=== PATIENT | female | born 1980 | race Caucasian/White ===

== ENCOUNTER 2017-04-17 20:32 | Emergency (ER) | payer OTHER ==
[2017-04-17 20:44] VITALS: BP 158/80; PULSE 100; O2SAT 100
[2017-04-17] MEDS ORDERED: Eye-Stream Solution OP ONE (20:51)
[2017-04-17] MEDS ORDERED: Erythromycin 3.5 GM OPHTH. OP ONE (20:51)
[2017-04-17] MEDS ORDERED: Fluor-I-Strip/Ful-Flo OP ONE ×2 (20:51→20:54)
[2017-04-17] MEDS ORDERED: TETRACAINE 0.5% STERI-UNIT SOL OP STA (20:51)
[2017-04-17] MEDS ORDERED: TETRACAINE 0.5% STERI-UNIT SOL OP ONE (20:53)
[2017-04-17] MEDS ORDERED: Sodium Chloride 0.9% 1000 ML 1,000 ML ONE (20:57)
[2017-04-17] MEDS ORDERED: Eye-Stream Solution ONE (20:59)
[2017-04-17] MEDS ORDERED: Erythromycin 1 GM ONE (21:05)
[2017-04-17] MEDS ORDERED: Norco 10/325 MG Tablet PO ONE ×2 (21:05)
--- NOTE | 2017-04-17 21:12 | ERPHSYRPT ---
- History of Present Illness Time Seen by Provider: 04/17/17 20:40 Source: patient Patient Subjective Stated Complaint: Right eye pain Triage Nursing Assessment: Pt states she was playing with sticks with her children, states stick was thrown and hit her in the eye. Redness noted. Pt denies any loss of vision. Physician History: PATIENT STATES WHILE THROWING STICKS TO GROWN WITH HER CHILDREN, STICK BOUNCED OFF GROUND STRIKING PATIENT INTO RIGHT EYE SUSTAINING PAIN, TEARING, AND PHOTOPHOBIA. Timing/Duration: today, improved Severity: severe Apparent Injury: yes Associated Symptoms: pain, sensitivity to light, foreign body sensation, decreased vision Visual Assistive Devices: Glasses, At Home Chemical Exposure: No Trauma: Yes Welding Arc/Tanning Bed Exposure: No Allergies/Adverse Reactions: No Known Drug Allergies Allergy (Unverified 08/11/13 18:59) Hx Tetanus, Diphtheria Vaccination/Date Given: Yes Hx Influenza Vaccination/Date Given: Yes Hx Pneumococcal Vaccination/Date Given: No Immunizations Up to Date: Yes - Review of Systems Constitutional: No Symptoms Eyes: Eye Pain, Photophobia, Tearing, Vision Changes, Foreign Body Sensation Ears, Nose, & Throat: No Symptoms Respiratory: No Symptoms Cardiac: No Symptoms Psychological: No Symptoms - Past Medical History Pertinent Past Medical History: No Psycho-Social History: Anxiety - Past Surgical History Past Surgical History: Yes Female Surgical History: Section Other Surgical History: Section x3 - Social History Smoking Status: Former smoker How long have you smoked: 6 years Exposure to second hand smoke: No Drug Use: none Patient Lives Alone: No - Female History Hx Last Menstrual Period: 03/29/2017 Hx Now: No - Nursing Vital Signs Nursing Vital Signs: Initial Vital Signs Temperature 97.8 F 04/17/17 20:38 Pulse Rate 100 H 04/17/17 20:38 Respiratory Rate 14 04/17/17 20:38 Blood Pressure 158/80 04/17/17 20:38 O2 Sat by Pulse Oximetry 100 04/17/17 20:38 Pain Scale Pain Intensity 10 - Physical Exam General Appearance: moderate distress Vision Acuity Degree Evaluation Phase: Uncorrected Vision Acuity Right Eye: 20/70 Vision Acuity Left Eye: 20/30 Eye Exam: right eye: corneal abrasion (8MM ABRASION FROM A 11-OCLOCK TO 1- OCLOCK POSITION, NO CHEMOSIS OR HYPHEMA, FUNDUS DISC FLAT), vision changes, bilateral eye: PERRL, EOMI Ears, Nose, Throat Exam: normal ENT inspection Neck Exam: normal inspection Respiratory Exam: normal breath sounds Cardiovascular Exam: regular rate/rhythm SpO2 Interpretation: normal SpO2: 100 Oxygen Delivery: Room Air Ordered Tests: Active Orders 24 hr Category Date Time Status Visual Acuity STAT Care 04/17/17 20:51 Ordered Medication Summary Discontinued Medications Generic Name Dose Route Start Last Admin Trade Name Sayra PRN Reason Stop Dose Admin Hydrocodone Bitart/Acetaminophen 1 tab 04/17/17 21:05 [place] 10/325 Mg Tablet PO 04/17/17 21:06 STAT ONE Hydrocodone Bitart/Acetaminophen 2 tab 04/17/17 21:05 [place] 10/325 Mg Tablet PO 04/17/17 21:06 SENT HOME W/ PATIENT ONE Erythromycin 3.5 gm 04/17/17 20:51 Erythromycin 3.5 Gm Ophth. OP 04/17/17 20:52 STAT ONE Eye Irrigation Solution 15 ml 04/17/17 20:51 Eye-Stream Solution OP 04/17/17 20:52 STAT ONE Eye Irrigation Solution Confirm 04/17/17 20:59 Eye-Stream Solution Administered 04/17/17 21:00 Dose 30 ml .ROUTE .STK-MED ONE Fluorescein Sodium 1 mg 04/17/17 20:51 Iozcr-N-Txdyp/Ful-Viktor OP 04/17/17 20:52 STAT ONE Fluorescein Sodium Confirm 04/17/17 20:54 Mnqld-O-Qmmsy/Ful-Viktor Administered 04/17/17 20:55 Dose 1 mg OP .STK-MED ONE Sodium Chloride Confirm 04/17/17 20:57 Sodium Chloride 0.9% 1000 Ml Administered 04/17/17 20:58 Dose 1,000 mls @ ud .ROUTE .STK-MED ONE Tetracaine HCl 4 ml 04/17/17 20:51 Tetracaine 0.5% Steri-Unit Kathleen OP 04/17/17 20:52 STAT STA Tetracaine HCl Confirm 04/17/17 20:53 Tetracaine 0.5% Steri-Unit Kathleen Administered 04/17/17 20:54 Dose 4 ml OP .STK-MED ONE - Progress Progress: improved Progress Note: 04/17/17 21:13 TETNUS CURRENT, TETRACAINE OPHTHALMIC SOLUTION 3GTTS OD, NO EVIDENCE OF FOREIGN BODY BELOW UPPER EYE LID, MICHAEL TUCKER + FOR CORNEAL ABRASION AT A 11- OCLOCK TO 1- 0CLOCK POSITION, NO FLAP NOTED, EYE IRRIGATION, APPLICATION EYRTHROMYCIN OPHTHALMIC OINTMENT OD, NOR[place] 10/325 ORALLY Counseled pt/family regarding: diagnosis, need for follow-up - Departure Time of Disposition: 21:23 Departure Disposition: Home Clinical Impression: RIGHT EYE CORNEAL ABRASION Condition: Stable Critical Care Time: No Referrals: DAPHNIE DOSS [Primary Care Provider] - Additional Instructions: APPLY ERYTHROMYCIN OPHTHALMIC OINTMENT 1/2 INCH RIBBON INTO YOUR RIGHT LOWER INNER EYE LID, 4 TIMES DAILY FOR 7 DAYS. NOR[place] 10/325 EVERY 4 HOURS NEEDED FOR PAIN. FOLLOW UP WITH A BUILDINGS AND GROUNDS COORDINATOR IN 3-6 DAYS. RETURN TO EMERGENCY FOR INCREASING PAIN. Prescriptions: Hydrocodone/APAP 10/325 mg [[place] 10/325 MG Tablet] 1 tab PO Q4H PRN PRN # 16 tablet MDD 6 PRN Reason: Pain Erythromycin Base 3.5 gm [Erythromycin 3.5 GM OPHTH.] 1 inch OP QID #2 tube
[2017-04-17] MEDS ORDERED: Norco 10/325 MG Tablet ONE (21:29)
== END 2017-04-17 21:48 | disposition home or self-care (01) ==
LOC: ED 20:32
DX: S05.01XA Injury of conjunctiva and corneal abrasion without foreign body, right eye, initial encounter (principal); W20.8XXA Other cause of strike by thrown, projected or falling object, initial encounter
CPT/HCPCS: 99283; A9270-GY